=== PATIENT | female | born 1980 | race African-American/Black ===

== ENCOUNTER 2016-08-08 05:35 | Emergency (ER) | payer MEDICARE, MEDICAID ==
[2016-08-08 05:35] VITALS: BMI 25.7
[2016-08-08] MEDS ORDERED: NS 1,000 ML IV ONE (05:46)
[2016-08-08] MEDS ORDERED: PANTOPRAZOLE 40 MG VIAL IV ONE (05:46)
--- NOTE | 2016-08-08 05:49 | EDPRACDOC ---
- General Information Stated Complaint: ABD PAIN X 2 WEEKS Time Seen by Provider: 08/08/16 05:37 Information Source: Patient, [employer] Mode Of Arrival: Ambulance Home Medications: Home Medications Ciprofloxacin HCl [Cipro] 500 mg PO BID #20 tab 04/17/16 Ondansetron HCl [Zofran] 4 mg PO TID #30 tablet 04/17/16 Pantoprazole Sodium [Protonix] 40 mg PO DAILY #30 tab 04/17/16 Paroxetine HCl [Paxil] 40 mg PO DAILY 04/17/16 Famotidine [Pepcid] 20 mg PO DAILY #30 tablet 08/08/16 Allergies/Adverse Reactions: Allergies Allergy/AdvReac Type Severity Reaction Status Date / Time No Known Allergies Allergy Verified 08/08/16 06:22 - History of Present Illness Onset: 2 WEEKS HPI: PT HAS HAD INCREASING EPIGASTRIC ABD PAIN FOR 2 WEEKS. SHE CALLED EMS THIS AM B /C PAIN WAS WORSENING. Pain Location: Reports: Epigastric Pain Context: Reports: Spontaneous Pain Severity: Moderate Pain Quality: Reports: Sharp Pain Radiation: Reports: No Radiation Modifying Factors: improves with: Nothing Oral Intake: Normal Urinary Output: Normal ED Past Medical History - Patient Medical History Psychological History: Reports: Depression Systemic History: Reports: Anemia Surgical History: Reports: No Significant History - Social Medical History Smoking Status: Never smoker ETOH: None Substance Abuse: None Lives In: Home EDM Review of Systems - Review of Systems ROS Negative Except as Marked: Yes All systems reviewed and were negative except as marked Gastrointestinal: Pain - Physical Exam Constitutional: Alert (Awake), No apparent distress Oriented to: Time, Person, Place Last recorded Vital Signs: Last Vital Signs Temp 98.2 F 08/08/16 05:59 Pulse 72 08/08/16 06:33 Resp 20 08/08/16 06:33 BP 132/80 08/08/16 06:33 Pulse Ox 99 08/08/16 06:33 Oxygen Pulse Oxygen Saturation 99 O2 Device Room Air Oxygen Flow Rate Fraction of Inspired Oxygen ( FIO2) - HEENT Head: Normal ( normocephalic) Eye Exam: Normal (PERRL, EOMI, Sclera white) Oropharynx: Normal (Pharynx:Moist without exudate,Gums-no swelling) ENT EAC: Normal TMJ: Normal Nose: No Symptoms Reported (septum midline) Neck: Normal (FROM, trachea at midline) - Respiratory/Cardiovascular Respiratory: Normal - CTA (BBS clear to auscultation without adventitious sounds ) Cardiovascular: Normal (RRR without murmur, gallop or rub) - GI Auscultation: Normal (NABS) Palpation: Normal (Soft,No rebound or guarding, non distended) Tenderness: Mild, Epigastric Miller's Sign: Negative - Musculoskeletal Back: Normal (Non-Tender) Extremities: Normal (Normal tone, Pulses 2+ No cyanosis or edema, FROM) - Integumentary Skin: Normal, Warm, Dry Lymphatics: Normal (no adenopathy) - Neurologic Memory Impaired: Normal Motor Function: Normal (Normal tone, Pulses 2+ No cyanosis or edema, FROM) Cranial Nerve: Normal (CN II-X11 intact sensation, strength 5/5) Cerebellar: Normal Mood Description: Normal Perception: Normal - Re-evaluation Re-evaluation 1 Re-evaluation Time: 07:01 (IMPROVED) - Results 08/08/16 06:15 08/08/16 06:15 WBC 3.7 xk/uL (3.8-10.8) L 08/08/16 06:15 RBC 3.81 xM/uL (4.20-5.40) L 08/08/16 06:15 Hgb 11.8 g/dL (12.0-16.0) L 08/08/16 06:15 Hct 36.1 % (36-47) 08/08/16 06:15 MCV 95 fL (81-99) 08/08/16 06:15 MCH 30.9 pg (27-32) 08/08/16 06:15 MCHC 32.6 g/dl (33-36) L 08/08/16 06:15 RDW 13.3 % (11.5-14.5) 08/08/16 06:15 Plt Count 145 xk/uL (130-400) 08/08/16 06:15 MPV 7.2 fL (7.4-10.4) L 08/08/16 06:15 Neut % (Auto) 45.7 % (45-76) 08/08/16 06:15 Lymph % (Auto) 45.7 % (17-44) H 08/08/16 06:15 [place] % (Auto) 6.4 % (3-10) 08/08/16 06:15 Eos % (Auto) 1.9 % (0-5) 08/08/16 06:15 Baso % (Auto) 0.3 % (0-2) 08/08/16 06:15 Absolute Neuts (auto) 1.67 xk/uL (1.7-8.2) L 08/08/16 06:15 Absolute Lymphs (auto) 1.67 xk/uL (0.65-4.75) 08/08/16 06:15 Sodium 140 mEq/L (137-146) 08/08/16 06:15 Potassium 3.6 mEq/L (3.5-5.1) 08/08/16 06:15 Chloride 104 mEq/L (98-107) 08/08/16 06:15 Carbon Dioxide 26 mMOL/L (22-33) 08/08/16 06:15 Anion Gap 14 mEq/L (8-16) 08/08/16 06:15 BUN 9 MG/DL (7-17) 08/08/16 06:15 Creatinine 0.70 MG/DL (0.52-1.04) 08/08/16 06:15 Estimated GFR (MDRD) > 60 mL/min (>=60) 08/08/16 06:15 Glucose 91 MG/DL (70-99) 08/08/16 06:15 Calculated Osmolality 268 MOs/Kg (270-290) L 08/08/16 06:15 Calcium 9.8 MG/DL (8.4-10.2) 08/08/16 06:15 Total Bilirubin 0.8 MG/DL (0.2-1.3) 08/08/16 06:15 AST 34 IU/L (14-36) 08/08/16 06:15 ALT 27 IU/L (9-52) 08/08/16 06:15 Alkaline Phosphatase 61 IU/L (38-126) 08/08/16 06:15 Total Protein 7.9 G/DL (6.3-8.2) 08/08/16 06:15 Albumin 4.6 G/DL (3.5-5.0) 08/08/16 06:15 Lipase 68 U/L (23-300) 08/08/16 06:15 Urine Color Yellow 08/08/16 06:22 Urine Clarity Clear 08/08/16 06:22 Urine pH 6.0 (5.0-8.0) 08/08/16 06:22 Ur Specific [place] 1.015 (1.003-1.035) 08/08/16 06:22 Urine Protein Neg (NEG/TRACE) 08/08/16 06:22 Urine Glucose (UA) Neg (NEGATIVE) 08/08/16 06:22 Urine Ketones Neg (NEGATIVE) 08/08/16 06:22 Urine Occult Blood Neg (NEG/TRACE) 08/08/16 06:22 Urine Nitrite Neg (NEGATIVE) 08/08/16 06:22 Urine Bilirubin Neg (NEGATIVE) 08/08/16 06:22 Urine Urobilinogen <2.0 MG/DL (0-1) 08/08/16 06:22 Ur Leukocyte Esterase Neg (NEGATIVE) 08/08/16 06:22 Urine RBC 0-2 (0-5) 08/08/16 06:22 Urine WBC 2-5 (0-5) 08/08/16 06:22 Ur Epithelial Cells 1+ 08/08/16 06:22 Urine Bacteria Few (NEG/FEW) 08/08/16 06:22 Urine Test Neg (NEGATIVE) 08/08/16 06:22 Lab Results 08/08/16 08/08/16 08/08/16 06:22 06:22 06:15 WBC 3.7 L RBC 3.81 L Hgb 11.8 L Hct 36.1 MCV 95 MCH 30.9 MCHC 32.6 L RDW 13.3 Plt Count 145 MPV 7.2 L Neut % (Auto) 45.7 Lymph % (Auto) 45.7 H [place] % (Auto) 6.4 Eos % (Auto) 1.9 Baso % (Auto) 0.3 Absolute Neuts (auto) 1.67 L Absolute Lymphs (auto) 1.67 Sodium Potassium Chloride Carbon Dioxide Anion Gap BUN Creatinine Estimated GFR (MDRD) Glucose Calculated Osmolality Calcium Total Bilirubin AST ALT Alkaline Phosphatase Total Protein Albumin Lipase Urine Color Yellow Urine Clarity Clear Urine pH 6.0 Ur Specific [place] 1.015 Urine Protein Neg Urine Glucose (UA) Neg Urine Ketones Neg Urine Occult Blood Neg Urine Nitrite Neg Urine Bilirubin Neg Urine Urobilinogen <2.0 Ur Leukocyte Esterase Neg Urine RBC 0-2 Urine WBC 2-5 Ur Epithelial Cells 1+ Urine Bacteria Few Urine Test Neg 08/08/16 06:15 WBC RBC Hgb Hct MCV MCH MCHC RDW Plt Count MPV Neut % (Auto) Lymph % (Auto) [place] % (Auto) Eos % (Auto) Baso % (Auto) Absolute Neuts (auto) Absolute Lymphs (auto) Sodium 140 Potassium 3.6 Chloride 104 Carbon Dioxide 26 Anion Gap 14 BUN 9 Creatinine 0.70 Estimated GFR (MDRD) > 60 Glucose 91 Calculated Osmolality 268 L Calcium 9.8 Total Bilirubin 0.8 AST 34 ALT 27 Alkaline Phosphatase 61 Total Protein 7.9 Albumin 4.6 Lipase 68 Urine Color Urine Clarity Urine pH Ur Specific [place] Urine Protein Urine Glucose (UA) Urine Ketones Urine Occult Blood Urine Nitrite Urine Bilirubin Urine Urobilinogen Ur Leukocyte Esterase Urine RBC Urine WBC Ur Epithelial Cells Urine Bacteria Urine Test Decision Time to Discharge: 07:02 - Departure Yes I personally saw and evaluated the patient. Disposition: Home Condition: Fair Final Diagnosis: Abdominal pain Instructions: Acute Abdominal Pain (ED) Education/Counseling Given To: Patient Education/Counseling Given Regarding: Diagnosis, Treatment, Follow Up Referrals: Wilfredo Sheets MD [Primary Care Provider] - One Week Jose Cruz Trent MD [Staff Physician] - One Week Prescriptions: New Famotidine [Pepcid] 20 mg PO DAILY #30 tablet No Action Paroxetine HCl [Paxil] 40 mg PO DAILY Ciprofloxacin HCl [Cipro] 500 mg PO BID #20 tab Ondansetron HCl [Zofran] 4 mg PO TID #30 tablet Pantoprazole Sodium [Protonix] 40 mg PO DAILY #30 tab
[2016-08-08 06:01] VITALS: TEMP 98.2
[2016-08-08 06:34] LABS: AUTOMATED BASOPHIL 0.3 % (0-2); AUTOMATED EOSINOPHIL 1.9 % (0-5); AUTOMATED LYMPH 45.7 % (17-44); AUTOMATED MONOCYTE 6.4 % (3-10); AUTOMATED NEUTROPHIL 45.7 % (45-76); MPV 7.2 fL (7.4-10.4)
[2016-08-08 06:37] LABS: LEUKOCYTES/URINE NEG (NEGATIVE); NITRITE/URINE NEG (NEGATIVE); RBC/URINE 0-2 (0-5); URINE OCCULT BLOOD NEG (NEG/TRACE)
[2016-08-08 06:51] LABS: BLOOD UREA NITROGEN 9 MG/DL (7-17); CALCIUM 9.8 MG/DL (8.4-10.2); CALCULATED OSMOLALITY 268 MOs/Kg (270-290); CHLORIDE 104 mEq/L (98-107); GLUCOSE 91 MG/DL (70-99); SODIUM LEVEL 140 mEq/L (137-146); TOTAL PROTEIN 7.9 G/DL (6.3-8.2)
[2016-08-08 07:16] VITALS: BP 132/70; PULSE 73
== END 2016-08-08 07:15 | disposition home or self-care (01) ==
LOC: ED 05:35
DX: R10.9 Unspecified abdominal pain (principal)
CPT/HCPCS: 36415; 80053; 81001; 81025; 83690; 85025; 96361; 96374; 99283; J3490; S0164